=== PATIENT | male | born 1960 | race Caucasian/White ===

== ENCOUNTER 2022-05-28 07:16 | Day surgery (SDC) | payer OTHER, MEDICAID ==
[~2022-05-28] VITALS: Ht 185.4 cm; Wt 143.8 kg
[~2022-05-28 07:16] MED LIST: CEFAZOLIN SOD 1 GM/ ISO 50 ML PREMIX IV ONE
[2022-05-28] MEDS ORDERED: DILT240C91 PO (09:25)
[2022-05-28] MEDS ORDERED: HYDR-3917 PO (09:32)
[2022-05-28] MEDS ORDERED: DEXL60CA4 PO (09:32)
[2022-05-28] MEDS ORDERED: TERA5CAP4 PO (09:32)
[2022-05-28] MEDS ORDERED: DEXAMETHASONE SOD PHOSPHATE 4 MG/ML VIAL IVP ONE (12:00)
[2022-05-28] MEDS ORDERED: BUPIVACAINE /PF 0.25% 30 ML VIAL INJ ONE (12:00)
[2022-05-28] MEDS ORDERED: ePHEDrine sulfate 50 MG/ML VIAL IVP ONE (12:00)
[2022-05-28] MEDS ORDERED: MIDAZOLAM HCL 5 MG/5 ML VIAL IVP ONE (12:00)
[2022-05-28] MEDS ORDERED: ONDANSETRON HCL 4 MG/2 ML VIAL IVP ONE (12:00)
[2022-05-28] MEDS ORDERED: PROPOFOL 200MG/ 20ML VIAL (DIPRIVAN) IV ONE (12:00)
[2022-05-28] MEDS ORDERED: NS IRRIG SOLN 1000 ML IR ONE (12:00)
[2022-05-28] MEDS ORDERED: SUGAMMADEX SODIUM 200 MG/2 ML VIAL IV ONE (12:00)
[2022-05-28] MEDS ORDERED: fentaNYL CITRATE/PF 100 MCG/2 ML AMP IVP ONE (12:00)
[2022-05-28] MEDS ORDERED: LR 1,000 ML IV.SOLN IV ONE (12:00)
[2022-05-28] MEDS ORDERED: KETOROLAC TROMETHAMINE 30 MG VIAL IVP ONE (12:00)
[2022-05-28] MEDS ORDERED: DESFLURANE 15 MIN GAS INH ONE (12:00)
[2022-05-28] MEDS ORDERED: CEFAZOLIN 2 GM IVPB PREMIX 50 ML IV ONE (12:00)
[2022-05-28] MEDS ORDERED: ROCURONIUM BROMIDE 10 MG/ML (ZEMURON) IV ONE (12:00)
[2022-05-28] MEDS ORDERED: ACETAMINOPHEN I.V. 1000 MG 100 ML IV ONE (12:24)
[2022-05-28] MEDS ORDERED: MEPERIDINE HCL/PF 25 MG/ML DISP.SYRIN IVP PRN (12:45)
[2022-05-28] MEDS ORDERED: hydrALAZINE HCL 20 MG/ML VIAL IVP PRN (12:45)
[2022-05-28] MEDS ORDERED: METOCLOPRAMIDE HCL 10 MG/2 ML VIAL IVP PRN (12:45)
[2022-05-28] MEDS ORDERED: LR 1,000 ML IV SCH (12:45)
[2022-05-28] MEDS ORDERED: LABETALOL 100 MG/ 20ML VIAL IVP PRN (12:45)
[2022-05-28] MEDS ORDERED: HYDROmorphone 1 MG/ML INJ. CARTRIDGE IVP PRN ×2 (12:45)
[2022-05-28] MEDS ORDERED: D5/0.45 NS 1,000 ML IV SCH (13:15)
[2022-05-28] MEDS: HYDROmorphone 1 MG/ML INJ. CARTRIDGE ONE ×2 (14:11→14:16)
[2022-05-28 15:00] VITALS: BP_SYST 133
[2022-05-28] MEDS ORDERED: HYDROcodone/ACETAMIN 5-325 MG TAB (NORCO/ VICODIN) PO PRN ×2 (15:00→15:15)
--- NOTE | 2022-05-28 15:00 | NUR ---
RECEIVED PATIENT FROM PACU, PT IS AAOX4, DENIES PAIN, NO SOB, NO DISTRESS. PT'S VITALS WNL. NO FEVER. INFORMED PT THAT WE WILL CHECK HIS VITALS EVERY 15 MINUTES AND THIS RN WILL CHECK ANY ORDERS FROM THE SURGEON.
[2022-05-28] MEDS ORDERED: NON-FORMULARY MEDICATION (Dexlansoprazole (Dexilant) 60 MG) PO SCH (15:15)
[2022-05-28] MEDS ORDERED: DILTIAZEM HCL 240 MG CAP.SR.24H PO ONE (15:45)
[2022-05-28 16:00] VITALS: BP_SYST 143
--- NOTE | 2022-05-28 16:35 | NUR ---
PT IN STABLE CONDITION, ENDORSED TO TAMRA LAWSON.
--- NOTE | 2022-05-28 16:55 | NUR ---
Opening Notes Patient is awake, alert and oriented x4. No resp distress noted. Breathing is even and unlabored, RA. Pt remains on RA at this time. IV site on right FA 20 gauge intact. IVF started: D5 1/2 NS 2 100 ml/hr, infusing well. Pt denies any pain at this time. Pt is noted with a lower abdomen dressing, no signs of bleeding at this time Post op VS WNL. Pt was educated on use of call light and to call for help when needed. All needs met at this time. Safety and fall precautions in place. Bed in lowest position, alarm on, locked. Will continue to monitor.
[2022-05-28] MEDS: CEFAZOLIN 1 GM IVPB PREMIX 50 ML IV SCH ×2 (16:56→21:49)
--- NOTE | 2022-05-28 17:00 | NUR ---
ISSUE: Home Meds By Bedside/Dr. Kidd Per patient, "I take all three of my medications at the same time or else they will not work. I take Terazosin, Cardizem and Dexilant (for my acid reflux) all at the same time or else I will vomit at night. I need all three." Nurse checked pyxis and Dexilant is not available at this time. Nurse explained to patient that "Our hospital does not carry Dexilant but we can offer another med in the same class." Pt is refusing. Per pt, "No thats the only one that doesnt work for me. Patient pulled out a clear zip lock bag with unmarked medications in the bag. Per patient. "Well I have my meds here. I brought them from home." Nurse explained to pt, "Per hospital policy, pts CANNOT have meds by bedside. We dont want to risk double dosing you." Per patient, "But I need my acid reflux medication. Ask my doctor if I can take them." Nurse explained situation to charge nurse and Dr. Kidd was paged. Dr. Kidd called back and nurse updated on patients medication issue. Per MD Kidd, "Its okay. Patient can take his meds from home." Nurse asked, "Do you want our pharmacy to screen the meds before he takes them?" Per Dr. Kidd, "No its okay. The patient knows what he is doing. He can take them" Nurse educated pt that "Dr. Kidd said its okay to take his meds. But dont take them yet, let me inform the charge nurse and mammography supervisor first." Nurse notified charge nurse, Madai, [employer] Helper, Jai and the pharmacist. Per fish house worker and pharmacy, PT CANNOT TAKE PERSONAL MEDS FROM HOME. Nurse went to notify patient to not take his meds. Patient reported he already took his home meds (in his ziplock bag.) Notified charge nurse and fish house worker. Pt tolerated well, no signs of reaction. Will endorse.
[2022-05-28 17:13] VITALS: BP_SYST 145
[2022-05-28] MEDS ORDERED: PANTOPRAZOLE SODIUM 40 MG TAB PO ONE (17:15)
--- NOTE | 2022-05-28 18:55 | NUR ---
Closing Notes Patient is awake, alert oriented x4. No resp distress noted, RA. Pt is asking for his pain medications. Will endorse to next shift. IV site on right FA 20 gauge intact. D5 1/2 NS @ 100 ml/hr, infusing well. Penidng discharge tomorrow if stable. All needs met at this time. Safety and fall precautions in place. Bed in lowest position, alarm on, locked. Will continue to monitor.
[2022-05-28 20:11] VITALS: BP_SYST 119
[2022-05-28] MEDS: HYDROcodone/ACETAMIN 5-325 MG TAB (NORCO/ VICODIN) PO PRN (20:41)
[2022-05-28] MEDS ORDERED: TERAZOSIN HCL 5 MG CAPSULE (HYTRIN) PO SCH (21:00)
[2022-05-29 00:05] VITALS: BP_SYST 123
[2022-05-29] MEDS: HYDROcodone/ACETAMIN 5-325 MG TAB (NORCO/ VICODIN) PO PRN (01:57)
--- NOTE | 2022-05-29 02:15 | NUR ---
paged doctor ricco isbell on cell no answer left voicemail
[2022-05-29 07:45] VITALS: BP_SYST 140
--- NOTE | 2022-05-29 08:00 | NUR ---
rECEIVED PT IN BED, DENIES PAIN, NO SOB, NO DISTRESS, NO FEVER. PT ABDOMINAL WOUND DRESSING IS CLEAN , DRY AND INTACT. NO BLEEDING NOTED. PT DENIES PAIN IN THE AREA. WILL CONT TO MONITOR. INFORMED PAT THAT HE IS GOING TO BE DISCHARGE THIS AM ORDERED.
[2022-05-29] MEDS: PANTOPRAZOLE SODIUM 40 MG TAB PO SCH ×2 (08:51→08:54)
[2022-05-29] MEDS: DILTIAZEM HCL 240 MG CAP.SR.24H PO SCH ×2 (08:53→08:54)
--- NOTE | 2022-05-29 08:55 | NUR ---
pt refsued am meds, stated that it is not his usual time to take his meds.
[2022-05-29 09:07] VITALS: BP_SYST 140
--- NOTE | 2022-05-29 09:20 | NUR ---
D/C Patient Patient given medication reconciliation form and D/C instructions. Exit Care provided. Patient verbalized understanding. MD discussed with patient the results and treatment provided. Ambulatory with steady gait for discharge to home. Patient in stable condition, ID band removed. IV catheter removed, intact and dressing applied, no active bleeding. NO Rx of given. Patient educated on pain management. All belongings sent with patient.Discussed with patient discharge instructions as speicified by Dr isbell, pt verbalized understanding.
== END 2022-05-29 09:20 | disposition home or self-care (01) ==
LOC: SDS 07:16 → SMU 07:17 → SDS 05-29 09:20
PROVIDERS: ATTEND Colon & Rectal Surgery
DX: K42.0 Umbilical hernia with obstruction, without gangrene (principal); J45.909 Unspecified asthma, uncomplicated; I12.9 Hypertensive chronic kidney disease with stage 1 through stage 4 chronic kidney disease, or unspecified chronic kidney disease; N18.1 Chronic kidney disease, stage 1; E66.01 Morbid (severe) obesity due to excess calories; Z20.822 Contact with and (suspected) exposure to COVID-19; G43.909 Migraine, unspecified, not intractable, without status migrainosus; Z87.891 Personal history of nicotine dependence; Z79.899 Other long term (current) drug therapy
CPT/HCPCS: 36415 ×2; 49587; 87426; 88302; C1781; J0131; J0690 ×2; J1100; J1170; J1885; J2250; J2405; J2704; J3010; J3490 ×2; J7120; U0003